=== PATIENT | female | born 1975 | race Caucasian/White ===

== ENCOUNTER 2017-08-25 14:17 | Emergency (ER) | payer BC ==
[2017-08-25 14:35] VITALS: BP 122/70; PULSE 82; TEMP 98.3; BMI 20.3
--- NOTE | 2017-08-25 14:36 | PDOC ---
History of Present Illness - General Chief Complaint: Chest Pain Stated Complaint: CHEST PAIN Time Seen by Provider: 08/25/17 14:35 - History of Present Illness Initial Comments: 08/25/17 16:34 42-year-old female with no significant past medical history presents with 3 days of constant substernal chest pressure associated with intermittent numbness in her hands and upper extremities bilaterally as well as her lower extremities. She also reports difficulty focusing at work, and chills. She reports the chest pain is not positional, and not exertional or pleuritic. The chest pain is constant regardless of what she does. No treatments tried. Reports intermittent palpitations. She has never had similar symptoms in the past. Reports multiple sick contacts in her 2 children and . Denies headache, stiff neck. Denies rashes. Denies abdominal pain, nausea, vomiting, diarrhea, urinary symptoms. Denies recent travel or immobility. Not on OCPs. Past History - Past Medical History Allergies/Adverse Reactions: Allergies Allergy/AdvReac Type Severity Reaction Status Date / Time No Known Drug Allergies Allergy Verified 12/16/15 10:44 Home Medications: Ambulatory Orders NK [No Known Home Medication] 12/16/15 COPD: No Other medical history: denies - Suicide/Smoking/Psychosocial Hx Smoking History: Never smoked Have you smoked in the past 12 months: No Information on smoking cessation initiated: Yes Hx Alcohol Use: No Drug/Substance Use Hx: No Substance Use Type: None Review of Systems - Review of Systems Comments:: 08/25/17 16:56 GENERAL/CONSTITUTIONAL: No fever No weakness. +chills HEAD, EYES, EARS, NOSE AND THROAT: No change in vision. No ear pain or discharge. No sore throat. GASTROINTESTINAL: No nausea, vomiting, diarrhea or constipation. GENITOURINARY: No dysuria, frequency, or change in urination. CARDIOVASCULAR: +chest pain. No shortness of breath. RESPIRATORY: No cough, wheezing, or hemoptysis. MUSCULOSKELETAL: No joint or muscle swelling or pain. No neck or back pain. SKIN: No rash NEUROLOGIC: No headache, vertigo, loss of consciousness, or change in strength. +numbness of UE and LE ENDOCRINE: No increased thirst. No abnormal weight change. HEMATOLOGIC/LYMPHATIC: No anemia, easy bleeding, or history of blood clots. ALLERGIC/IMMUNOLOGIC: No hives or skin allergy. *Physical Exam - Vital Signs Last Vital Signs Temp Pulse Resp BP Pulse Ox 98.3 F 82 20 122/70 99 08/25/17 14:31 08/25/17 14:31 08/25/17 14:31 08/25/17 14:31 08/25/17 14:31 - Physical Exam Comments: 08/25/17 16:57 GENERAL: Awake, alert, and fully oriented, in no acute distress HEAD: No signs of trauma EYES: PERRLA, EOMI, sclera anicteric, conjunctiva clear ENT: Auricles normal inspection, hearing grossly normal, nares patent, oropharynx clear without exudates. dry MM NECK: Normal ROM, supple, no lymphadenopathy, JVD, or masses LUNGS: Breath sounds equal, clear to auscultation bilaterally. No wheezes, and no crackles HEART: Regular rate and rhythm, normal S1 and S2, no murmurs, rubs or gallops ABDOMEN: Soft, nontender, normoactive bowel sounds. No guarding, no rebound. No masses EXTREMITIES: Normal range of motion, no edema. No clubbing or cyanosis. No cords, erythema, or tenderness NEUROLOGICAL: Normal speech, cranial nerves intact, negative pronator drift, 5/ 5 strength in all 4 extremities, normal sensation to light touch in all 4 extremities, normal cerebellar exam, normal gait, normal reflexes and tone SKIN: Warm, Dry, normal turgor, no rashes or lesions noted. Heart Score/ECG Review - History History: Slightly suspicious - Electrocardiogram EKG: Non specific repolarization disturbance - Age Age: </= 45 - Risk Factors Based on the list above the patient has:: No risk factors known - Troponin Troponin: </= normal limit - Score Heart Score - Total: 1 ED Treatment Course - LABORATORY CBC & Chemistry Diagram: 08/25/17 15:09 08/25/17 15:09 Medical Decision Making - Medical Decision Making 08/25/17 16:24 42yo F w no PMH p/w 3 days of sternal pressure a/w intermittent migrating parasthesias. Vitals unremarkable. Exam unremarkable. EKG NSR with no ROS but inferior TWI and possible U waves? With regards to chest pain, it is unclear what the etiology of this pain. Heart score is 1 and thus low risk ACS - will check a troponin. She does not meet any of the PERC criteria and thus unlikely PE, she also has no risk factors for PE. Pericarditis also a thought with recent sick contacts (pt's chi and URI sxs but pain is not positional, and EKG w /o NV depressions. Will give NSAIDs for pain and see if pain improves. Will obtain a CXR to look for infiltrates or other structural causes of CP. Pain may also be MSK pain although pain is not reproducible one exam. With regards to transient numbness, pt currently has numbness in R>L arm, but no deficits on exam. Given U waves on EKG, possible electrolyte abnormality? Alternatively, story concerning for MS, upon discussion with Dr. Wilson from neurologist, will obtain MRI brain and cervical spine w/o contrast to evaluate for demyelinating disease. MRI ordered, and pending. Pt updated on this recommendation and agrees with plan. 08/25/17 17:24 Labs including trop wnl. CXR is pending read. Spoke with MRI, pt can be sent down for the study at this time. Pt has been updated and transition of care to evening attending has been communicated to patient. Pt signed out to the evening attending Dr. Fraser for further management and disposition. *DC/Admit/Observation/Transfer Diagnosis at time of Disposition: Numbness and tingling - Discharge Dispostion Disposition: HOME Condition at time of disposition: Stable - Referrals Referrals: Jamshid Wilson MD [Staff Physician] - Cholo Weems MD [Primary Care Provider] - - Patient Instructions Printed Discharge Instructions: DI for Numbness/tingling Additional Instructions: Please make a follow up appointment with Dr. Wilson by calling the office tomorrow morning. Please also follow up with your PMD. Please return to the ED with any further complaints. - Post Discharge Activity
[2017-08-25] MEDS ORDERED: SODIUM CHLORIDE 0.9% 500 ML INFUS.BAG IV ONE (14:47)
[2017-08-25 15:37] LABS: EOS % 1.3 % (0-4.5); HEMOGLOBIN 12.7 GM/dL (10.7-15.3); LYMPH % 29.3 % (8-40); MCH 31.1 pg (25.7-33.7); MCHC 33.5 g/dl (32.0-36.0); MEAN CELL VOLUME 92.9 fl (80-96); MEAN PLT VOLUME 8.6 fl (7.5-11.1); MONO % 8.8 % (3.8-10.2); NEUT % 59.6 % (42.8-82.8); PLATELET COUNT 218 K/MM3 (134-434); RBC 4.09 M/mm3 (3.60-5.2); RDW 13.5 % (11.6-15.6); WHITE BLOOD COUNT 4.1 K/mm3 (4.0-10.0)
--- NOTE | 2017-08-25 16:12 | EKG ---
Test Reason : Blood Pressure : / mmHG Vent. Rate : 074 BPM Atrial Rate : 074 BPM P-R Int : 180 ms QRS Dur : 086 ms QT Int : 390 ms P-R-T Axes : 054 081 007 degrees QTc Int : 432 ms NORMAL SINUS RHYTHM POSSIBLE LEFT ATRIAL ENLARGEMENT T WAVE ABNORMALITY, CONSIDER INFERIOR ISCHEMIA ABNORMAL ECG NO PREVIOUS ECGS AVAILABLE Confirmed by REGINE MONROY MD ([id number]) on 08/25/2017 4:12:29 PM Referred By: Confirmed By:REGINE MONROY MD
[2017-08-25 16:20] LABS: ALBUMIN 3.6 g/dl (3.4-5.0); ANION GAP 8 (8-16); BILIRUBIN,TOTAL 0.2 mg/dL (0.2-1.0); BLOOD UREA NITROGEN 12 mg/dL (7-18); CHLORIDE 109 mmol/L (98-107); CO2 24 mmol/L (21-32); CREATININE 0.7 mg/dL (0.55-1.02); GLUCOSE,RANDOM 139 mg/dL (74-106); SGPT/ALT 24 U/L (12-78); SODIUM 141 mmol/L (136-145); TOT PROT 6.7 g/dl (6.4-8.2)
[2017-08-25 16:29] LABS: ALK PHOS 48 U/L (45-117); LIPASE 206 U/L (73-393); MAGNESIUM 2.2 mg/dL (1.8-2.4)
[2017-08-25 16:30] LABS: SGOT/AST 17 U/L (15-37)
[2017-08-25] MEDS ORDERED: KETOROLAC TROMETHAMINE 15 MG/ML VIAL IVPUSH ONE (16:40)
[2017-08-25] MEDS ORDERED: KETOROLAC TROMETHAMINE 30 MG/1 ML VIAL ONE (16:43)
[2017-08-25 16:52] LABS: URINE APPEARANCE CLEAR; URINE BILIRUBIN NEGATIVE (NEGATIVE); URINE BLOOD NEGATIVE (NEGATIVE); URINE COLOR STRAW; URINE GLUCOSE (UA) NEGATIVE (NEGATIVE); URINE KETONE NEGATIVE (NEGATIVE); URINE LEUK ESTERASE NEGATIVE (NEGATIVE); URINE NITRITE NEGATIVE (NEGATIVE); URINE PROTEIN NEGATIVE (NEGATIVE); URINE UROBILINOGEN NEGATIVE mg/dL (0.2-1.0)
--- NOTE | 2017-08-25 19:40 | PDOC ---
*Physical Exam - Vital Signs Last Vital Signs Temp Pulse Resp BP Pulse Ox 98.3 F 82 20 122/70 99 08/25/17 14:31 08/25/17 14:31 08/25/17 14:31 08/25/17 14:31 08/25/17 14:31 - Physical Exam Comments: 08/25/17 19:37 Gen: aaox3, nad neuro: no focal neuro deficits ambulatory in the ED with a steady gait ED Treatment Course - LABORATORY CBC & Chemistry Diagram: 08/25/17 15:09 08/25/17 15:09 - ADDITIONAL ORDERS Additional order review: Laboratory Results 08/25/17 08/25/17 08/25/17 16:05 16:05 15:09 Sodium Potassium Chloride Carbon Dioxide Anion Gap BUN Creatinine Creat Clearance w eGFR Random Glucose Calcium Magnesium Total Bilirubin AST ALT Alkaline Phosphatase Troponin I B-Natriuretic Peptide Total Protein Albumin Lipase TSH Beta HCG, Quant Cancelled Urine Color Straw Urine Appearance Clear Urine pH 6.0 Ur Specific Royal 1.009 Urine Protein Negative Urine Glucose (UA) Negative Urine Ketones Negative Urine Blood Negative Urine Nitrite Negative Urine Bilirubin Negative Urine Urobilinogen Negative Ur Leukocyte Esterase Negative Urine HCG, Qual Negative 08/25/17 08/25/17 08/25/17 15:09 15:09 15:09 Sodium 141 Potassium 4.0 Chloride 109 H Carbon Dioxide 24 Anion Gap 8 BUN 12 Creatinine 0.7 Creat Clearance w eGFR > 60 Random Glucose 139 H Calcium 8.0 L Magnesium Cancelled 2.2 Total Bilirubin 0.2 AST 17 ALT 24 Alkaline Phosphatase 48 Troponin I Cancelled < 0.02 B-Natriuretic Peptide 29.24 Total Protein 6.7 Albumin 3.6 Lipase Cancelled 206 TSH Cancelled 1.15 Beta HCG, Quant < 1.0 Urine Color Urine Appearance Urine pH Ur Specific Royal Urine Protein Urine Glucose (UA) Urine Ketones Urine Blood Urine Nitrite Urine Bilirubin Urine Urobilinogen Ur Leukocyte Esterase Urine HCG, Qual 08/25/17 15:10 Influenza Types A,B Antigen (MICHEAL) - Final Nasopharyngeal Swab - Final 08/25/17 15:09 RBC 4.09 MCV 92.9 MCHC 33.5 RDW 13.5 MPV 8.6 Neutrophils % 59.6 Lymphocytes % 29.3 Monocytes % 8.8 Eosinophils % 1.3 Basophils % 1.0 - Medications Given in the ED: ED Medications Discontinued Medications Generic Name Dose Route Start Last Admin Trade Name Carmelita PRN Reason Stop Dose Admin Ketorolac Tromethamine 30 mg 08/25/17 16:40 08/25/17 16:46 Toradol Injection - IVPUSH 08/25/17 16:41 30 mg ONCE ONE Administration Sodium Chloride 1,000 ml 08/25/17 14:47 08/25/17 15:18 Normal Saline - IV 08/25/17 14:48 1,000 ml ONCE ONE Administration Medical Decision Making - Medical Decision Making 08/25/17 19:37 pt signed out pending MRI head and neck 08/25/17 19:38 neuro intact pt returns from MRI requesting to go home Dr. Villagran recommending calling the office tomorrow to arrange for follow up either tomorrow or tuesday will call patient with MRI reports *DC/Admit/Observation/Transfer Diagnosis at time of Disposition: Numbness and tingling - Discharge Dispostion Disposition: HOME Condition at time of disposition: Stable Admit: No - Referrals Referrals: Cholo Weems MD [Primary Care Provider] - Jamshid Wilson MD [Staff Physician] - - Patient Instructions Printed Discharge Instructions: DI for Numbness/tingling Additional Instructions: Please make a follow up appointment with Dr. Wilson by calling the office tomorrow morning. Please also follow up with your PMD. Please return to the ED with any further complaints. - Post Discharge Activity
== END 2017-08-25 19:48 | disposition home or self-care (01) ==
LOC: JER 14:17
PROC: 3E0333Z Introduction of Anti-inflammatory into Peripheral Vein, Percutaneous Approach (ICD-10-PCS; principal; 2017-08-25)
DX: R20.0 Anesthesia of skin (principal); R07.89 Other chest pain
CPT/HCPCS: 36415; 70551-TC; 71046-TC; 72141-TC; 80053; 81003; 83690; 83735; 83880; 84443; 84484; 84702; 84703; 85025; 87086; 87804; 93005; 93010; 99282-25

== ENCOUNTER 2018-11-09 12:39 | Emergency (ER) | payer BC ==
[2018-11-09 12:41] VITALS: BP 123/73; PULSE 76; TEMP 98.2; BMI 22.1
--- NOTE | 2018-11-09 13:17 | PDOC ---
History of Present Illness - History of Present Illness Initial Comments: 11/09/18 13:32 The patient is a 43-year-old female with no reported past medical history presents to the emergency department from Dr. Brielle Fernando (records supervisor ) office for L. eye evaluation. The patient reported about 4 days ago, she noticed R. eye redness, associated with swelling, that resolved and presented on the L. eye. The patient states she felt like she had a lump on the Left eye , associated with swelling. The patient reports following up with ENT Dr. Love, who did a check-up, which was normal and referred the patient to ophthalmology. The patient reports following up with the ophthalmology [employer] MANAGER, where she had a color test done. The patient reports on her right eye, and she was able to notice the red color; however, on her left eye was unable to see the color, states it looked dark. At the ER, the patient reports her red colored nail chilean looked fine on the right eye; however with her left eye it looked different. The patient reports a similar incident about 2 months ago, eye swelling, which was treated with abx. The patient reports associated symptoms of a headache. The patient states she is on monitor for glaucoma suspect. Denies history of color blind. The patient reports having an MRI done about a year ago to r/o MS, however, she denies following up. Allergies: NKDA Family history: Father (degenerative brain disease) Social history: Denies the use to tobacco, alcohol or drug use. PCP: Dr. Weems. <Karma Strickland - Last Filed: 11/09/18 15:35> - General History Source: Patient Exam Limitations: No Limitations <Maria Victoria Coulter - Last Filed: 11/09/18 15:47> - General Chief Complaint: Eye Problem Stated Complaint: EYE PAIN Time Seen by Provider: 11/09/18 12:41 Past History <Karma Strickland - Last Filed: 11/09/18 15:35> - Past Medical History COPD: No - Suicide/Smoking/Psychosocial Hx Smoking History: Never smoked Have you smoked in the past 12 months: No Information on smoking cessation initiated: No Hx Alcohol Use: No Drug/Substance Use Hx: No Substance Use Type: None <Maria Victoria Coulter - Last Filed: 11/09/18 15:47> - Past Medical History Allergies/Adverse Reactions: Allergies Allergy/AdvReac Type Severity Reaction Status Date / Time No Known Drug Allergies Allergy Verified 11/09/18 12:41 Home Medications: Ambulatory Orders NK [No Known Home Medication] 12/16/15 Review of Systems - Review of Systems Able to Perform ROS?: Yes Comments:: 11/09/18 13:32 GENERAL/CONSTITUTIONAL: No fever or chills. No weakness. HEAD, EYES, EARS, NOSE AND THROAT: +L. Eye color difference. No change in right eye. No blurry vision. No ear pain or discharge. No sore throat. CARDIOVASCULAR: No chest pain or shortness of breath. RESPIRATORY: No cough, wheezing, or hemoptysis. GASTROINTESTINAL: No nausea, vomiting, diarrhea or constipation. GENITOURINARY: No dysuria, frequency, or change in urination. MUSCULOSKELETAL: No joint or muscle swelling or pain. No neck or back pain. SKIN: No rash NEUROLOGIC: +headache. No vertigo, loss of consciousness, or change in strength/ sensation. ENDOCRINE: No increased thirst. No abnormal weight change. HEMATOLOGIC/LYMPHATIC: No anemia, easy bleeding, or history of blood clots. ALLERGIC/IMMUNOLOGIC: No hives or skin allergy. <Karma Strickland - Last Filed: 11/09/18 15:35> *Physical Exam - Vital Signs Last Vital Signs Temp Pulse Resp BP Pulse Ox 98.2 F 76 18 123/73 100 11/09/18 12:39 11/09/18 12:39 11/09/18 12:39 11/09/18 12:39 11/09/18 12:39 <Karma Strickland - Last Filed: 11/09/18 15:35> - Vital Signs Last Vital Signs Temp Pulse Resp BP Pulse Ox 98.2 F 76 18 123/73 100 11/09/18 12:39 11/09/18 12:39 11/09/18 12:39 11/09/18 12:39 11/09/18 12:39 - Physical Exam Comments: 11/09/18 13:17 awake alert right eye with mild periorbital edema. EOMI. left eye no swelling noted. VF intact pERRL. no temp art tenderness. decreased sensation to light tough surrounding right eye. lungs clear bilaterally heart rrr no mrg skin warm and dry. CN II - XII intact. no erythema to skin no warmth. <Maria Victoria Coulter - Last Filed: 11/09/18 15:47> ED Treatment Course - LABORATORY CBC & Chemistry Diagram: 11/09/18 13:10 11/09/18 13:10 - ADDITIONAL ORDERS Additional order review: 11/09/18 13:10 RBC 4.31 MCV 93.4 MCHC 33.7 RDW 13.0 MPV 8.4 Neutrophils % 57.6 Lymphocytes % 30.0 Monocytes % 10.5 H Eosinophils % 0.9 Basophils % 1.0 <Karma Strickland - Last Filed: 11/09/18 15:35> - LABORATORY CBC & Chemistry Diagram: 11/09/18 13:10 11/09/18 13:10 - RADIOLOGY Radiology Studies Ordered: Category Date Time Status HEAD CT WITHOUT CONTRAST [CT] Stat CT Scan 11/09/18 12:[address] W/WO CONTRAST [CT] Stat CT Scan 11/09/18 13:03 Ordered <Maria Victoria Coulter - Last Filed: 11/09/18 15:47> Medical Decision Making - Medical Decision Making 11/09/18 13:34 Phone calls: Dr. Weems called at 12:[address] Elise is covering ER. Call placed to Dr. Brielle Fernando MD at 12:58 pm. Call placed to Dr. Love at 1:12 pm, case discussed with Dr. Love at 1:22 pm. 11/09/18 15:[address] Watkins. 11/09/18 15:[address] Watkins. <Karma Strickland - Last Filed: 11/09/18 15:35> - Medical Decision Making 11/09/18 13:06 43 yo F with no pmhx here with c/o unable to see red color from left eye. pt was unaware of this , was at opthomologist today with concerns for intermittent eye swelling in right eye over the last few weeks. was treated with antiobiotic and it improved. also c/o intermittent headaches. was evaluated by dr love recently for sinusitis. has also had intermittent numbness and tingling in the right arm for which she had an MRI of the brain one year ago. has yet to followup with nuerology. today saw Dr Cartagena in opthomology, who sent for possible process affecting the optic nerve on the left eye. pt denies blurry vision, no eye pain, no focal weakness no change to speech. no f/c does have right eye periorbital swelling. on exam pt awake alert right eye with mild periorbital edema. EOMI. left eye no swelling noted. VF intact pERRL. no temp art tenderness. decreased sensation to light tough surrounding right eye. CN II - XII intact. no erythema to skin no warmth. plan ct orbits, and brain with without. r/o orbital cellulitis, periorbital or retroribtal abscess, esr r/o temp arteritis, ct brain nuero eval consider MS or other optic nuerve pathology. us orbits r/o retinal abnormlaties. case d/w DR Cartagena opthomologist. montero, awaiting call back. dr Ivan pritchard awaiting call back. 11/09/18 13:52 focused ED us ocular bilater performed. indication : vision changes eval retinal changes, optic nerve edema. bilat eyes scanned in two planes using high frequency linear transducer. bilat retinal viewed and normal. no foreign body left eye optic nerve upper limits of normal 4.9mm right eye optic nerve 3 mm. impression : left optic nerve upper limits of normal. recommend MRI . otherwise unremarkable. 11/09/18 15:[address] unremarkable. labs normal. on my exam boggy appearance to right eye infraorbital region likley allergic. will recommend zyrtec and benadryl. D/w June, will see pt tomorrow in office at 3:30. will fu with oupatient MRI. <Maria Victoria Coulter - Last Filed: 11/09/18 15:47> *DC/Admit/Observation/Transfer - Attestations Scribe Attestion: 11/09/18 13:35 Documentation prepared by Karma Strickland, acting as medical social consultant for Maria Victoria Coulter MD. <Karma Strickland - Last Filed: 11/09/18 15:35> - Discharge Dispostion Decision to Admit order: No <Maria Victoria Coulter - Last Filed: 11/09/18 15:47> Diagnosis at time of Disposition: Vision changes - Discharge Dispostion Disposition: HOME Condition at time of disposition: Good - Referrals Referrals: Cholo Weems MD [Primary Care Provider] - Selvin Love MD [Staff Physician] - Terry Watkins MD [Staff Physician] - - Patient Instructions Additional Instructions: you have an appointment with dr Watkins tomorrow at 3:30 pm. call to confirm in the am. see referral information. return for worsening change to your vision, weakness, fever or any other concerns. your cT of the eyes and brain today is unremarkable. however, review of your MRI from one year ago, you have changes concerning that warrent a repeat MRI. this is to be arranged with DR Watkins tomorrow. you should also take zyrtec 5 mg daily to help with allergic symtoms of eye itching, sneezing and sinus congestion.
[2018-11-09 13:18] LABS: EOS % 0.9 % (0-4.5); HEMATOCRIT 40.3 % (32.4-45.2); HEMOGLOBIN 13.6 GM/dL (10.7-15.3); MCH 31.5 pg (25.7-33.7); MCHC 33.7 g/dl (32.0-36.0); MEAN CELL VOLUME 93.4 fl (80-96); MEAN PLT VOLUME 8.4 fl (7.5-11.1); MONO % 10.5 % (3.8-10.2); NEUT % 57.6 % (42.8-82.8); PLATELET COUNT 189 K/MM3 (134-434); RBC 4.31 M/mm3 (3.60-5.2); WHITE BLOOD COUNT 5.6 K/mm3 (4.0-10.0)
[2018-11-09 13:44] LABS: ALBUMIN 3.9 g/dl (3.4-5.0); ALK PHOS 46 U/L (45-117); ANION GAP 4 MMOL/L (8-16); BILIRUBIN,TOTAL 0.4 mg/dL (0.2-1); BLOOD UREA NITROGEN 16 mg/dL (7-18); CALCIUM 8.6 mg/dL (8.5-10.1); CHLORIDE 108 mmol/L (98-107); CO2 26 mmol/L (21-32); CREATININE 0.6 mg/dL (0.55-1.3); GLUCOSE,RANDOM 91 mg/dL (74-106); POTASSIUM 4.2 mmol/L (3.5-5.1); SGOT/AST 10 U/L (15-37); SGPT/ALT 19 U/L (13-61); SODIUM 138 mmol/L (136-145); TOT PROT 7.2 g/dl (6.4-8.2)
[2018-11-09 14:12] LABS: ERYTHROCYTE SEDIMENTATION RATE 12 mm/hr (0-20)
--- NOTE | 2018-11-09 15:58 | EKG ---
Test Reason : Blood Pressure : / mmHG Vent. Rate : 066 BPM Atrial Rate : 066 BPM P-R Int : 192 ms QRS Dur : 086 ms QT Int : 416 ms P-R-T Axes : 023 076 -14 degrees QTc Int : 436 ms NORMAL SINUS RHYTHM NONSPECIFIC T WAVE ABNORMALITY ABNORMAL ECG WHEN COMPARED WITH ECG OF 25-AUG-2017 14:22, NO SIGNIFICANT CHANGE WAS FOUND Confirmed by REGINE MONROY MD ([id number]) on 11/09/2018 3:58:36 PM Referred By: Confirmed By:REGINE MONROY MD
== END 2018-11-09 16:04 | disposition home or self-care (01) ==
LOC: JER 12:39
PROC: B84 Imaging, Eye, Ultrasonography (ICD-10-PCS; principal; 2018-11-09)
DX: H53.8 Other visual disturbances (principal); H05.221 Edema of right orbit
CPT/HCPCS: 36415; 70450-TC; 70481-TC; 80053; 84703; 85025; 85651; 93005; 93010; 99281-25

== ENCOUNTER 2019-03-17 09:07 | Emergency (ER) | payer BC | END 2019-03-17 13:50 | disposition home or self-care (01) | LOC: JER 09:07 ==